=== PATIENT | male | born 1975 | race Caucasian/White ===

== ENCOUNTER 2020-12-15 13:37 | Emergency (ER) | payer SELFPAY ==
--- NOTE | 2020-12-15 14:14 | EDM.PDOCBH ---
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 Denies: Old Records History Limitations: Reports: No Limitations - History of Present Illness INITIAL COMMENTS - FREE TEXT/NARRATIVE: 45 yo male presents with a request for medical clearance for [facility]. Drank already today 2 pints. Averages 2 pints/day. Has been to AA, but no detox in the past. Smokes 1/2 ppd. No other drugs. No recent illnesses, black or bloody stools, or seizures. Has had DT's he says in the past. 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 (see below) (none) - Related Data Allergies Allergy/AdvReac Type Severity Reaction Status Date / Time No Known Allergies Allergy Verified 12/15/20 13:55 Home Meds: Home Meds NK [No Known Home Meds] 12/15/20 [History] Past Medical History HEENT History: Reports: None Cardiovascular History: Reports: Hypertension Respiratory History: Reports: None Gastrointestinal History: Reports: None Genitourinary History: Reports: None Musculoskeletal History: Reports: None Neurological History: Reports: None Psychiatric History: Reports: Addiction Endocrine/Metabolic History: Reports: None Hematologic History: Reports: None Immunologic History: Reports: None Oncologic (Cancer) History: Reports: None Dermatologic History: Reports: None - Infectious Disease History Infectious Disease History: Reports: Chicken Pox - Past Surgical History HEENT Surgical History: Reports: None GI Surgical History: Reports: None Social & Family History - Tobacco Use Tobacco Use Status *Q: Current Every Day Tobacco User Years of Tobacco use: 25 Packs/Tins Daily: 0.5 - Caffeine Use Caffeine Use: Reports: None - Alcohol Use Days Per Week of Alcohol Use: 7 Number of Drinks Per Day: 4 Total Drinks Per Week: 28 - Recreational Drug Use Recreational Drug Use: No ED ROS GENERAL - Review of Systems Review Of Systems: See Below Constitutional: Reports: No Symptoms HEENT: Reports: No Symptoms Respiratory: Reports: No Symptoms Cardiovascular: Reports: No Symptoms GI/Abdominal: Reports: No Symptoms : Reports: No Symptoms Musculoskeletal: Reports: No Symptoms Skin: Reports: No Symptoms Neurological: Reports: No Symptoms Psychiatric: Reports: Other (intoxication with ETOH) ED EXAM, BEHAVIORAL HEALTH - Physical Exam Exam: See Below Exam Limited By: Intoxication General Appearance: Alert, WD/WN, No Apparent Distress Eye Exam: Bilateral Eye: Normal Inspection Ears: Normal External Exam, Normal Canal, Hearing Grossly Normal Nose: Normal Inspection, No Blood Throat/Mouth: Normal Inspection, Normal Lips, Normal Oropharynx, Normal Voice, No Airway Compromise Head: Atraumatic, Normocephalic Neck: Normal Inspection Respiratory/Chest: No Respiratory Distress, Lungs Clear, Normal Breath Sounds, No Accessory Muscle Use Cardiovascular: Regular Rate, Rhythm, No Edema GI/Abdominal: Normal Bowel Sounds, Soft, Non-Tender, No Distention Back Exam: Normal Inspection. No: CVA Tenderness (R), CVA Tenderness (L) Extremities: Normal Inspection, Normal Range of Motion, Non-Tender, No Pedal Edema. No: Pedal Edema Neurological: Alert, Normal Mood/Affect, CN II-XII Intact, Normal Cognition, No Motor/Sensory Deficits, Oriented x 3 Psychiatric: Alert, Normal Affect, Normal Cognition, Normal Mood, Oriented Skin Exam: Warm, Dry, Intact, Normal color, No rash COURSE, BEHAVIORAL HEALTH COMP - Course Vital Signs: Last Vital Signs Temp 36.6 C 12/15/20 13:49 Pulse 100 12/15/20 13:49 Resp 16 12/15/20 13:49 BP 163/110 H 12/15/20 15:31 Pulse Ox 97 12/15/20 13:49 Orders, Labs, Meds: Laboratory Tests 12/15/20 12/15/20 12/15/20 Range/Units 14:02 14:04 14:15 Urine Opiates Screen Negative (NEGATIVE) Ur Oxycodone Screen Negative (NEGATIVE) Urine Methadone Screen Negative (NEGATIVE) Ur Propoxyphene Screen Negative (NEGATIVE) Ur Barbiturates Screen Negative (NEGATIVE) Ur Tricyclics Screen Negative (NEGATIVE) Ur Phencyclidine Scrn Negative (NEGATIVE) Ur Amphetamine Screen Negative (NEGATIVE) U Methamphetamines Scrn Negative (NEGATIVE) Urine MDMA Screen Negative (NEGATIVE) U Benzodiazepines Scrn Negative (NEGATIVE) U Cocaine Metab Screen Negative (NEGATIVE) U Marijuana (THC) Screen Negative (NEGATIVE) Ethyl Alcohol 372 mg/dL SARS CoV-2 RNA Rapid CASSIE Negative Medications Discontinued Medications Generic Name Dose Route Start Last Admin Trade Name Dileep PRN Reason Stop Dose Admin Lisinopril 10 mg 12/15/20 14:56 12/15/20 15:31 Lisinopril 10 Mg Tab PO 12/15/20 14:57 10 mg ONETIME ONE Administration Lisinopril 10 mg 12/15/20 15:20 Lisinopril 10 Mg Tab PO 12/15/20 15:21 ONETIME ONE Thiamine HCl 100 mg 12/15/20 14:53 12/15/20 15:31 Thiamine 100 Mg Tab PO 12/15/20 14:54 100 mg ONETIME ONE Administration Departure - Departure Time of Disposition: 15:55 Disposition: DC/Tfer to Other 70 Condition: Fair Clinical Impression: Chronic alcohol use, Tobacco use, HTN, goal below 130/80 Alcohol intoxication Qualifiers: Complication of substance-induced condition: uncomplicated Qualified Code(s): F10.920 - Alcohol use, unspecified with intoxication, uncomplicated - Discharge Information *PRESCRIPTION DRUG MONITORING PROGRAM REVIEWED*: Not Applicable *COPY OF PRESCRIPTION DRUG MONITORING REPORT IN PATIENT MOY: Not Applicable Instructions: Alcohol Intoxication, [id number], Hypertension, Adult, E asy-to-Read Referrals: PCP,None [Primary Care Provider] - Forms: ED Department Discharge Additional Instructions: I have provided you a prescription for a month's supply of lisinopril 10 mg. You need to make an appt with your doctor for a BP recheck before you run out. Sepsis Event Note (ED) - Focused Exam Vital Signs: Vital Signs Temp Pulse Resp BP BP Pulse Ox 12/15/20 15:31 163/110 H 12/15/20 13:49 36.6 C 100 16 156/113 H 97
[2020-12-15] MEDS ORDERED: Thiamine 100 MG Tab PO ONE (14:53)
[2020-12-15] MEDS ORDERED: Lisinopril 10 MG Tab PO ONE (15:20)
[2020-12-15] MEDS: Lisinopril 10 MG Tab PO ONE (15:31)
== END 2020-12-15 16:18 | disposition other institution (70) ==
LOC: JP.ED 13:37
DX: F10.129 Alcohol abuse with intoxication, unspecified (principal); I10 Essential (primary) hypertension; Z72.0 Tobacco use; Z20.822 Contact with and (suspected) exposure to COVID-19; Y90.8 Blood alcohol level of 240 mg/100 ml or more
CPT/HCPCS: 36415; 80305; 80307; 87635; 99284; A9270; U0002